=== PATIENT | female | born 1990 | race Hispanic/Latino ===

== ENCOUNTER 2019-01-19 10:01 | Emergency (ER) | payer OTHER ==
[2019-01-19] MEDS ORDERED: LIDOCAINE 5% TOPICAL PATCH TP ONE (11:03)
[2019-01-19] MEDS ORDERED: KETOROLAC TROMETHAMINE 60 MG/2 ML VIAL ONE (11:03)
[2019-01-19] MEDS ORDERED: CYCLOBENZAPRINE HCL 10 MG TABLET ONE (11:13)
== END 2019-01-19 11:48 | disposition home or self-care (01) ==
LOC: EDH 10:01
DX: S29.012A Strain of muscle and tendon of back wall of thorax, initial encounter (principal); M54.2 Cervicalgia; V49.59XA Passenger injured in collision with other motor vehicles in traffic accident, initial encounter; Y93.89 Activity, other specified; Y92.89 Other specified places as the place of occurrence of the external cause; Y99.8 Other external cause status
CPT/HCPCS: 96372; J1885